=== PATIENT | female | born 1975 | race Caucasian/White ===

== ENCOUNTER 2016-08-11 15:58 | Emergency (ER) | payer BC ==
[~2016-08-11] VITALS: Ht 172.7 cm; Wt 123.5 kg
[~2016-08-11 15:58] MED LIST: CYCL5TAB PO; IBUP-1542 PO; PRED20TA PO
[2016-08-11 16:12] VITALS: Ht 172.7 cm; Wt 123.5 kg
[2016-08-11] MEDS ORDERED: NAPR-260 PO (19:31)
--- NOTE | 2016-08-11 19:38 | ERD ---
ER Documentation Chief Complaint Date/Time DATE: 08/11/16 TIME: 19:36 Chief Complaint Pt with B arm burning and numbness X 3 weeks HPI Patient complains of 3 weeks of pain in the patient complains of 3 weeks of pain mostly in the morning from the bilateral shoulders that radiates down to the fingers. It is a tingling and numbness and hot sensation. 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 She was told that she has carpal tunnel syndrome and they have been given her a wrist brace but actually makes her pain worse. She also cuts her right heel on a piece of glass a few days ago now the area is red. ROS All systems reviewed and are negative except as per history of present illness. Medications Home Meds Active Scripts Sulfamethoxazole-Trimethoprim* (Bactrim* DS) 800-160 Mg Tab, 1 TAB PO BID for 5 Days, TAB Prov:PRABHA GENTILE DO 08/11/16 Naproxen* (Naprosyn*) 500 Mg Tablet, 500 MG PO BID Y for PAIN AND/OR INFLAMMATION, #20 TAB Prov:PRABHA GENTILE DO 08/11/16 Cyclobenzaprine Hcl* (Cyclobenzaprine Hcl*) 5 Mg Tablet, 5 MG PO Q8H Y for PAIN , #15 TAB Prov:BONI WADDELL PA-C 07/21/16 Prednisone* (Prednisone*) 20 Mg Tab, 40 MG PO DAILY for 4 Days, TAB Prov:BONI WADDELL PA-C 07/21/16 Ibuprofen* (Motrin*) 600 Mg Tab, 600 MG PO Q6, #30 TAB Prov:BONI WADDELL PA-C 07/21/16 Allergies Allergies: Coded Allergies: No Known Allergy (Unverified , 08/11/16) PMhx/Soc Medical and Surgical Hx: pt denies Medical Hx, pt denies Surgical Hx History of Surgery: No Anesthesia Reaction: No Hx Neurological Disorder: No Hx Respiratory Disorders: No Hx Cardiac Disorders: No Hx Psychiatric Problems: No Hx Miscellaneous Medical Probl: No Hx Alcohol Use: No Hx Substance Use: No Hx Tobacco Use: No Smoking Status: Never smoker Physical Exam Vitals Vital Signs Date Time Temp Pulse Resp B/P Pulse Ox O2 Delivery O2 Flow Rate FiO2 08/11/16 16:12 98.3 85 16 152/75 99 Physical Exam Const: [] Head: Atraumatic Eyes: Normal Conjunctiva ENT: Normal External Ears, Nose and Mouth. Neck: Full range of motion..~ No meningismus. Resp: Clear to auscultation bilaterally Cardio: Regular rate and rhythm, no murmurs Abd: Soft, non tender, non distended. Normal bowel sounds Skin: No petechiae . Left heel has a 0.5 cm laceration that is healing with surrounding skin is mildly erythematous and slightly warm approximately 3" x 2" no fluctuance no discharge Back: No midline or flank tenderness Ext: No cyanosis, or edema. Shoulders full range of motion negative Neer's negative apprehension test and neurovascularly intact. Bilateral wrist positive Tinel's and positive Phalen's test. Wrists and hands are neurovascularly intact. Neur: Awake and alert Psych: Normal Mood and Affect Procedures/MDM The left heel skin has some erythema so this may be a superficial skin infection and will give her Bactrim. She has positive Tinel's and Phalen's bilaterally so she likely has carpal tunnel syndrome and she may have possibly nerve impingement from post shoulders as well. We will give her Naprosyn as she is already taking ibuprofen 600 mg and she was given prednisone last time she was here as well. She needs to see Workmen's Compensation from her work since this is likely work-related. I told her that the options for carpal tunnel is to rest her hand take frequent breaks if that does not work then consider seeing an orthopedist for possible cortisone injections or surgery. I doubt abscess or cellulitis or stroke or TIA or compression syndrome or bony fracture. Vital signs are stable she stable for discharge and outpatient follow -up. Departure Diagnosis: Primary Impression: Bilateral arm pain Additional Impressions: Skin infection Carpal tunnel syndrome on both sides Referrals: CHACORTA OCHOA ANDREW M MD BOGIKIAN,JOEL HUGGINS,MICHAEL DE ANDA,VANESSA CORTES,VIRGINIA MARTIN MD,MD BALTAZAR,HILDA Fisher MD [facility] YOU HAVE RECEIVED A MEDICAL SCREENING EXAM AND THE RESULTS INDICATE THAT YOU DO NOT HAVE A CONDITION THAT REQUIRES URGENT TREATMENT IN THE EMERGENCY DEPARTMENT. FURTHER EVALUATION AND TREATMENT OF YOUR CONDITION CAN WAIT UNTIL YOU ARE SEEN IN YOUR DOCTORS OFFICE WITHIN THE NEXT 1-2 DAYS. IT IS YOUR RESPONSIBILITY TO MAKE AN APPOINTMENT FOR FOLOW-UP CARE. IF YOU HAVE A PRIMARY DOCTOR --you should call your primary doctor and schedule an appointment IF YOU DO NOT HAVE A PRIMARY DOCTOR YOU CAN CALL OUR PHYSICIAN REFERRAL HOTLINE AT IF YOU CAN NOT AFFORD TO SEE A PHYSICIAN YOU CAN CHOSE FROM THE FOLLOWING [facility] [address] [facility] [address] [facility] [address] [facility] [address] [facility] [address] [facility]. [facility] [address] [facility]. [facility] YOU HAVE RECEIVED A MEDICAL SCREENING EXAM AND THE RESULTS INDICATE THAT YOU DO NOT HAVE A CONDITION THAT REQUIRES URGENT TREATMENT IN THE EMERGENCY DEPARTMENT. FURTHER EVALUATION AND TREATMENT OF YOUR CONDITION CAN WAIT UNTIL YOU ARE SEEN IN YOUR DOCTORS OFFICE WITHIN THE NEXT 1-2 DAYS. IT IS YOUR RESPONSIBILITY TO MAKE AN APPOINTMENT FOR FOLOW-UP CARE. IF YOU HAVE A PRIMARY DOCTOR --you should call your primary doctor and schedule and appointment IF YOU DO NOT HAVE A PRIMARY DOCTOR YOU CAN CALL OUR PHYSICIAN REFERRAL HOTLINE AT . IF YOU CAN NOT AFFORD TO SEE A PHYSICIAN YOU CAN CHOSE FROM THE FOLLOWING COUNT INCLUDES THE [facility] INSTITUTIONS: [facility] [address] [place] [address] [facility] [address] [place] [address] [facility] [address] [place] [address] [facility] 7 a.m.- 11 p.m. Every Day of the Week NO APPOINTMENT OR AUTHORIZATION NEEDED Additional Instructions: follow up with worlman compensation insurance. PRABHA GENTILE DO Aug 11, 2016 19:38
[2016-08-11] MEDS ORDERED: BACTDS PO (19:39)
== END 2016-08-11 19:45 | disposition home or self-care (01) ==
LOC: FTE 15:58
DX: M79.601 Pain in right arm (principal); L08.89 Other specified local infections of the skin and subcutaneous tissue; M79.602 Pain in left arm; G56.03 Carpal tunnel syndrome, bilateral upper limbs
CPT/HCPCS: 99283

== ENCOUNTER 2017-03-06 22:03 | Emergency (ER) | payer BC ==
[~2017-03-06] VITALS: Ht 170.2 cm; Wt 104.5 kg
[~2017-03-06 22:03] MED LIST changes: +BACTDS PO; +NAPR-260 PO
[2017-03-06 22:05] VITALS: Ht 170.2 cm; Wt 104.5 kg
[2017-03-06] MEDS ORDERED: IBUPROFEN 600 MG TAB PO ONE (22:30)
--- NOTE | 2017-03-06 22:36 | ERD ---
ER Documentation Chief Complaint Date/Time DATE: 03/06/17 TIME: 22:33 Chief Complaint s/p fall x1 week c/o right leg/knee pain HPI 41-year-old female presents here in emergency department for complaints of right knee pain after putting pressure on it a week ago. Patient was walking, landed on the right leg, put pressure on the right knee, twisted it. Patient started to have the pain afterwards throbbing pain, 6/10 scale, is worse upon movement accompanied with swelling. Patient denies any numbness or tingling. Patient denies any fever or chills. Patient did not take any medications to help with symptoms. Patient denies any deformity. ROS All systems reviewed and are negative except as per history of present illness. Medications Home Meds Active Scripts Sulfamethoxazole-Trimethoprim* (Bactrim* DS) 800-160 Mg Tab, 1 TAB PO BID for 5 Days, TAB Prov:PRABHA GENTILE DO 08/11/16 Naproxen* (Naprosyn*) 500 Mg Tablet, 500 MG PO BID Y for PAIN AND/OR INFLAMMATION, #20 TAB Prov:PRABHA GENTILE DO 08/11/16 Cyclobenzaprine Hcl* (Cyclobenzaprine Hcl*) 5 Mg Tablet, 5 MG PO Q8H Y for PAIN , #15 TAB Prov:BONI WADDELL PA-C 07/21/16 Prednisone* (Prednisone*) 20 Mg Tab, 40 MG PO DAILY for 4 Days, TAB Prov:BONI WADDELL PA-C 07/21/16 Ibuprofen* (Motrin*) 600 Mg Tab, 600 MG PO Q6, #30 TAB Prov:BONI WADDELL PA-C 07/21/16 Allergies Allergies: Coded Allergies: No Known Allergy (Unverified , 08/11/16) PMhx/Soc Medical and Surgical Hx: pt denies Medical Hx, pt denies Surgical Hx History of Surgery: No Anesthesia Reaction: No Hx Neurological Disorder: No Hx Respiratory Disorders: No Hx Cardiac Disorders: No Hx Psychiatric Problems: No Hx Miscellaneous Medical Probl: No Hx Alcohol Use: No Hx Substance Use: No Hx Tobacco Use: No FmHx Family History: No coronary disease, No diabetes, No other Physical Exam Vitals Vital Signs Date Time Temp Pulse Resp B/P Pulse Ox O2 Delivery O2 Flow Rate FiO2 03/06/17 22:05 98.1 75 18 125/70 98 Physical Exam GENERAL: The patient is well developed and appropriate for usual state of health, in no apparent distress. CHEST: Clear to auscultation bilaterally. There are no rales, wheezes or rhonchi. HEART: Regular rate and rhythm. No murmurs, clicks, rubs or gallops. No S3 or S4. ABDOMEN: Soft, nontender and nondistended. Good bowel sounds. No rebound or guarding. No gross peritonitis. No gross organomegaly or masses. No Grace sign or McBurney point tenderness. BACK: No midline or flank tenderness. EXTREMITIES: Noted swelling in the right knee, mild tenderness on palpation on lateral medial aspect of the right knee, some ecchymosis noted. Able to do full range of motion but with pain. Equal pulses bilaterally. Full range of motion of other joints of the body. Grossly neurovascularly intact. NEURO: Alert and oriented. Cranial nerves 2-12 intact. Motor strength in all 4 extremities with 5/5 strength. Sensation grossly intact. Normal speech and gait. SKIN: There is no apparent rash or petechia. The skin is warm and dry. HEMATOLOGIC AND LYMPHATIC: There is no evidence of excessive bruising or lymphedema. No gross cervical, axillary, or inguinal lymphadenopathy. Results 24 hrs Current Medications Medications (Trade) Dose Ordered Sig/Joyce Route PRN Reason Start Time Stop Time Status Last Admin Dose Admin Ibuprofen (Motrin) 600 mg ONCE ONCE PO 03/06/17 22:30 03/06/17 22:31 DC 03/06/17 22:56 Patient was given medication for pain here in emergency department, after treatment, patient verbalized feeling much better. Patient's pain is improved. PROCEDURE: Right knee. CLINICAL INDICATION: Pain. TECHNIQUE: Three views including AP, lateral and oblique views of the right knee were obtained. The images reviewed on a PACS workstation. COMPARISON: None. FINDINGS: There is no fracture, dislocation or bone destruction. There is no significant joint space narrowing or effusion. Bone mineralization is within normal limits. There is no radiopaque foreign body or abnormal calcification. IMPRESSION: No evidence of fracture. .Eben Myers MD, MD Date Time Electronically viewed and signed by .Eben Myers MD, MD on 03/07/2017 00:37 .T/ CC: JUSTIN CAMACHO NP After receiving patients xray report, a _knee immobilizer was applied on the patients _right knee_. After application of the splint, patient has intact sensation and circulation on distal area of the affected joint. Patient does not complain of numbness or tingling after application of the splint. Patient tolerated procedure well. Crutches was given to use afterwards. Procedures/MDM Medical Decision Making: Patient's pain is most likely consistent with a contusion or a sprain, possibly ligament injury, further evaluation with outpatient MRI was recommended with the patient. There is no suspicion for neurovascular compromise. Patient has intact sensation and circulation of the affected extremity. There is low suspicion for septic arthritis. Patient does not have any fever. Radiology exams of the affected area does not show any fracture or dislocation. Disposition: Home. Patient is given prescription for ibuprofen for mild to moderate pain [place] for severe pain. Patient was advised to elevate the affected area and apply ice on affected area. Patient was advised that if symptoms are worse, numbness, tingling, high fever, unable to move joint, worsening symptoms, to return to emergency department immediately. Otherwise, patient is advised to follow up with the primary care doctor in 5-7 days for reevaluation of symptoms. Patient was advised to see primary care doctor and request for an MRI outpatient. Departure Diagnosis: Primary Impression: Knee pain Laterality: right Chronicity: acute Qualified Code: M25.561 - Acute pain of right knee Condition: Stable Patient Instructions: Knee Pain, Uncertain Cause Additional Instructions: Patient is given prescription for ibuprofen for mild to moderate pain [place] for severe pain. Patient was advised to elevate the affected area and apply ice on affected area. Patient was advised that if symptoms are worse, numbness, tingling, high fever, unable to move joint, worsening symptoms, to return to emergency department immediately. Otherwise, patient is advised to follow up with the primary care doctor in 5-7 days for reevaluation of symptoms. Patient was advised to see primary care doctor and request for an MRI outpatient. JUSTIN CAMACHO NP Mar 06, 2017 22:36
--- NOTE | 2017-03-07 00:37 | RADRPT ---
PROCEDURE: Right knee. CLINICAL INDICATION: Pain. TECHNIQUE: Three views including AP, lateral and oblique views of the right knee were obtained. The images reviewed on a PACS workstation. COMPARISON: None. FINDINGS: There is no fracture, dislocation or bone destruction. There is no significant joint space narrowin g or effusion. Bone mineralization is within normal limits. There is no radiopaque foreign body or abnormal calcification. IMPRESSION: No evidence of fracture. .Eben Myers MD, Date Time Electronically viewed and signed by .Eben Myers MD, MD on 03/07/2017 00:37 .T/
[2017-03-07] MEDS ORDERED: HYDR-906 PO (00:45)
[2017-03-07] MEDS ORDERED: IBUP-1542 PO (00:45)
== END 2017-03-07 01:06 | disposition home or self-care (01) ==
LOC: FTE 22:03
DX: M25.561 Pain in right knee (principal)
CPT/HCPCS: 29505; 73562; Z7610

== ENCOUNTER 2017-03-27 16:35 | Emergency (ER) | payer BC ==
[~2017-03-27] VITALS: Ht 165.1 cm; Wt 123.0 kg
[~2017-03-27 16:35] MED LIST changes: +HYDR-906 PO
[2017-03-27 16:39] VITALS: Ht 165.1 cm; Wt 123.0 kg
--- NOTE | 2017-03-27 17:09 | ERD ---
ER Documentation Chief Complaint Date/Time DATE: 03/27/17 TIME: 16:58 Chief Complaint Complains of right knee and left leg pain x 2 weeks HPI 41-year-old female presents emergency department for right knee pain. Stated that she has injured this morning month ago while she was walking the beach, fell, landed on her right knee. On that same date, she went to the emergency department and have her knee imaging which resulted to be negative, on crutches and follow-up with her primary care physician, and was told to come back in the emergency department if she feels worse. Now she states that she has been walking without crutches and not sure if she has reinjured the same knee. She also added that she has lower back pain that is nontraumatic, pain radiates to her left lower extremity. Denies headache, loss of consciousness, dizziness, blurry vision, changes in vision, photophobia, facial pain, ear pain, throat pain, difficulty swallowing, neck pain, shoulder pain, chest pain, cough, hemoptysis, abdominal pain, back pain, loss of appetite, nausea, vomiting, hematochezia, diarrhea, constipation, urinary symptoms, , the possibility of being , bladder and bowel incontinences, extremity weakness, numbness or tingling sensation, difficulty walking, recent travel, recent exposure to illness, recent antibiotic use in the last 3 months, fever, chills. Allergy: No known drug allergies. PMH: Anxiety, carpal tunnel syndrome, asthma. Family medical history: Denies. A0. LMP: "2 months ago." Medications: [place]. Surgery: 4. Primary Social History: Denies. Denies smoking, use of alcohol, use of illegal drugs. ROS All systems reviewed and are negative except as per history of present illness. Medications Home Meds Active Scripts Tramadol HCl (Tramadol HCl) 50 Mg Tablet, 50 MG PO Q6, #20 TAB Prov:TASHIA BOJORQUEZ 03/27/17 Albuterol Sulfate* (Proair HFA*) 8.5 Gm Hfa.aer.ad, 2 PUFF INH Q4, #1 INHALER Prov:TASHIA BOJORQUEZ 03/27/17 Ibuprofen* (Motrin*) 800 Mg Tab, 800 MG PO Q8 Y for PAIN AND OR ELEVATED TEMP, # 30 TAB Prov:TASHIA BOJORQUEZ 03/27/17 Cyclobenzaprine Hcl* (Cyclobenzaprine Hcl*) 10 Mg Tablet, 10 MG PO Q12, #20 TAB Prov:TASHIA BOJORQUEZ F 03/27/17 Hydrocodone/Acetaminophen ([place] 5-325 Tablet) 1 Each Tablet, 1 TAB PO Q6H Y for SEVERE PAIN LEVEL 7-10, #20 TAB Prov:JUSTIN CAMACHO DATA LEAD 03/07/17 Ibuprofen* (Motrin*) 600 Mg Tab, 600 MG PO Q6H Y for PAIN AND OR ELEVATED TEMP, #30 TAB Prov:JUSTIN CAMACHO DATA LEAD 03/07/17 Sulfamethoxazole-Trimethoprim* (Bactrim* DS) 800-160 Mg Tab, 1 TAB PO BID for 5 Days, TAB Prov:KRUPA,PRABHA DO 08/11/16 Naproxen* (Naprosyn*) 500 Mg Tablet, 500 MG PO BID Y for PAIN AND/OR INFLAMMATION, #20 TAB Prov:PRABHA GENTILE DO 08/11/16 Cyclobenzaprine Hcl* (Cyclobenzaprine Hcl*) 5 Mg Tablet, 5 MG PO Q8H Y for PAIN , #15 TAB Prov:BONI WADDELL PA-C 07/21/16 Prednisone* (Prednisone*) 20 Mg Tab, 40 MG PO DAILY for 4 Days, TAB Prov:BONI WADDELL PA-C 07/21/16 Ibuprofen* (Motrin*) 600 Mg Tab, 600 MG PO Q6, #30 TAB Prov:BONI WADDELL PA-C 07/21/16 Allergies Allergies: Coded Allergies: No Known Allergy (Unverified , 03/27/17) PMhx/Soc History of Surgery: Yes (c-sec, tone) Anesthesia Reaction: No Hx Neurological Disorder: No Hx Respiratory Disorders: No Hx Cardiac Disorders: No Hx Psychiatric Problems: No Hx Miscellaneous Medical Probl: Yes (carpal tunnel) Hx Alcohol Use: No Hx Substance Use: No Hx Tobacco Use: No Physical Exam Vitals Vital Signs Date Time Temp Pulse Resp B/P Pulse Ox O2 Delivery O2 Flow Rate FiO2 03/27/17 16:39 98.5 86 20 132/64 100 Physical Exam CONSTITUTIONAL: Well-appearing; well-nourished; in no apparent distress. HEAD: Normocephalic; atraumatic. EYES: Conjunctiva clear, sclera non-icteric, EOM intact. PERRL Ears: Hearing intact. EACs clear, TMs non-bulging, non-inflamed, translucent & mobile, ossicles normal appearance, No obstructions, no erythema, no discharges Nose: No obstructions. No polyps. No external lesions. Mucosa non-inflamed. No external lesions, septum and turbinates normal. No rhinorrhea. No discharges. Frontal sinus is non-tender to palpation. Maxillary sinus is non-tender to palpation. MOUTH: Moist mucous membranes, no lesion, no obstructions, no vesicles, no thrush, patent airway Throat: Uvula in midline. Right tonsil is +1 with no erythema, no exudate. Left tonsil is +1 with no erythema, no exudate. Tolerating secretions well. Good gag reflex. Patent airway. Neck: Supple, without lesions, bruits, or adenopathy. No mass. Thyroid non- enlarged and non-tender to palpation. CHEST: Symmetrical chest. Respirations even and not labored. No retractions noted. CARDIOVASCULAR: Normal S1, S2. RRR. No murmurs, gallops. RESPIRATORY: Normal chest excursion with respiration; breath sounds clear and equal bilaterally; no wheezes, rhonchi, or rales. Breathing even and unlabored. Speaking in clear, full, and complete sentences w/ ease. ABDOMEN: Normal bowel sounds normal. Soft, round, non-distended, non-guarding, no tenderness, no rebound, no organomegaly, no masses, no pulsating abdominal mass. No hernia. No peritoneal signs. : No CVA tenderness. BACK: Symmetrical shoulder. Spine is midline without deformity, tenderness. No evidence of trauma or deformity. PELVIS: Stable pelvis. No evidence of trauma or deformity. MUSCULOSKELETAL: Normal gait and station. No misalignment, asymmetry, crepitation, defects, tenderness, masses, effusions, decreased range of motion, instability, atrophy or abnormal strength or tone in the head, neck, spine, ribs , pelvis or extremities. No calf tenderness. Stable and unremarkable bilateral hips. Left straight leg test is positive. Left knee is unremarkable. Left ankle/foot are unremarkable with no neurovascular deficits. Right knee has no obvious deformity but tenderness to palpation to anterior and posterior part with good and full range of motion. Negative Adelfo test. Negative drawer test. Right ankle/foot are unremarkable with no neurovascular deficits. Negative Homans sign bilaterally. NEUROVASCULAR: Distal pulses are present. Pedal pulse are present, equal, and normal. Capillary refills are < 2 seconds. NEUROLOGIC: Alert and oriented x4. Speaks full and clear sentences.Sensation to pain, touch, and proprioception normal. Grossly unremarkable. No neurologic deficits. PSYCHOLOGICAL: The patients mood and manner are appropriate. No hallucinations , delusions. Not SI. Not HI. Has the capacity to decide for self SKIN: Normal for age and ethnicity; warm; dry; good turgor; no apparent lesions or exudates. No rashes, hives, discoloration. Intact. Results 24 hrs Current Medications Medications (Trade) Dose Ordered Sig/Joyce Route PRN Reason Start Time Stop Time Status Last Admin Dose Admin Acetaminophen/ Hydrocodone Bitart ([place] (10/325)) 1 tab ONCE ONCE PO 03/27/17 18:00 03/27/17 18:01 DC 03/27/17 17:55 Procedures/MDM Examination: Please see physical examination. Disease process, medical treatment was explained to the patient and family member. They verbalized understanding and agreed with the diagnostic tests, medical treatment, and follow-up care. Radiology: X-ray of the right knee Impression: Increasing size of joint effusion. No fracture seen however the effusion could reflect ligamentous or meniscal injury. Treatment: Knee immobilizer. Crutches. Re-evaluation: Denies headache, dizziness, blurry vision, neck pain, shoulder pain, chest pain, back pain, abdominal pain, nausea, vomiting. No episode of emesis in the emergency department. Alert and oriented 4. Speaks full and clear sentences. Respirations even and unlabored. Lung sounds clear to auscultation. Ambulatory with steady gait. No neurovascular deficits. No neurological deficits. No neurovascular deficits prior to and after the application of knee immobilizer. Consultation: None. Differential diagnosis: Fracture versus dislocation versus displacement versus contusion versus sprain versus sciatica Medical decision makin-year-old female presents emergency department for right knee pain. Stated that she has injured this morning month ago while she was walking the beach, fell, landed on her right knee. On that same date, she went to the emergency department and have her knee imaging which resulted to be negative, on crutches and follow-up with her primary care physician, and was told to come back in the emergency department if she feels worse. Now she states that she has been walking without crutches and not sure if she has reinjured the same knee. She also added that she has lower back pain that is nontraumatic, pain radiates to her left lower extremity. Patient's complaint, patient's history about her complaint, my physical findings, diagnostic test results, my reevaluation after treatment are consistent my final diagnosis of low back strain, sciatica, sneeze sprain, knee contusion. Patient was also asking for an inhaler for her chronic asthma stating that she ran out of this inhaler. Medications prescribed are the following: Flexeril. Motrin. Tramadol. Pro- air. Patient and family member are made aware of the side effects and adverse reactions of the medications prescribed. Instructed on when to seek emergent and medical attention in case allergic/anaphylactic reactions or severe side effects and or adverse reactions to medications. Patient and family member verbalized understanding. Patient instructed Instructed to follow-up with his PCP in 24-48 hours. PCP to refer patient to orthopedic doctor in the next 24-48 hours. Instructed to Call 911 for chest pain, shortness of breath. Advised to come back here in ED as soon as possible for severity of symptoms which includes but not limited to: any new symptoms; shortness of breath/difficulty of breathing; cardiovascular changes; severe gastrointestinal symptoms; signs and symptoms of bleeding and or infection; signs of compartment syndrome/neurovascular changes; neurological changes/deficits. Patient and family member verbalized understanding. Upon discharge, patient is alert and oriented x 4, speaks full and clear sentences, denies pain, has no neurological deficits, has no neurovascular deficits, difficulty of breathing. Breathing even and unlabored. Lung sounds are clear to auscultation. Not in distress. Appears comfortable. Ambulatory with steady gait. Appears satisfied with care provided here in ED. Departure Diagnosis: Primary Impression: Low back strain Additional Impressions: Sciatica Knee sprain Knee contusion Meniscal injury Condition: Stable Additional Instructions: Instructed to follow-up with his PCP in 24-48 hours. PCP to refer patient to orthopedic doctor in the next 24-48 hours. Instructed to Call 911 for chest pain, shortness of breath. Advised to come back here in ED as soon as possible for severity of symptoms which includes but not limited to: any new symptoms; shortness of breath/difficulty of breathing; cardiovascular changes; severe gastrointestinal symptoms; signs and symptoms of bleeding and or infection; signs of compartment syndrome/neurovascular changes; neurological changes/deficits. Patient and family member verbalized understanding. TASHIA BOJORQUEZ Mar 27, 2017 17:09
[2017-03-27] MEDS ORDERED: IBUP800T25 PO (17:42)
[2017-03-27] MEDS ORDERED: CYCL-319 PO (17:42)
[2017-03-27] MEDS ORDERED: ALBU8.5H3 INH (17:43)
[2017-03-27] MEDS ORDERED: HYDROCODONE/APAP (10/325) TAB PO ONE (18:00)
--- NOTE | 2017-03-27 18:24 | RADRPT ---
PROCEDURE: XR RIGHT KNEE. CLINICAL INDICATION: Right knee recurrent injury. Pain. TECHNIQUE: Three views of the right knee are available for review. COMPARISON: 03/06/2017. FINDINGS: There is a [id number] joint effusion present and there has been an increase in size. No frac ture is identified. The findings may reflect a ligamentous injury or meniscal tear. There is mild arthrosis of the patellofemoral joint. No evidence for bone destructive or erosive change. IMPRESSION: 1. Increase in size of joint effusion. 2. No fractures seen however the effusion could reflect ligamentous or meniscal injury. RPTAT: XX .Jonas Taylor MD, MD Date Time Electronically viewed and signed by .Jonas Taylor MD, on 03/27/2017 18:23 .T/
[2017-03-27] MEDS ORDERED: TRAM50TA2 PO (18:35)
[2017-03-27 19:00] VITALS: BP 135/68; PULSE 76; RESP 18
== END 2017-03-27 19:01 | disposition home or self-care (01) ==
LOC: FTE 16:35
DX: S39.012A Strain of muscle, fascia and tendon of lower back, initial encounter (principal); S80.01XA Contusion of right knee, initial encounter; S83.91XA Sprain of unspecified site of right knee, initial encounter; J45.909 Unspecified asthma, uncomplicated; W18.39XA Other fall on same level, initial encounter; Y92.9 Unspecified place or not applicable
CPT/HCPCS: 73562; 99284; Z7610

== ENCOUNTER 2017-04-14 11:48 | Emergency (ER) | payer BC ==
[~2017-04-14] VITALS: Ht 170.2 cm; Wt 123.0 kg
[~2017-04-14 11:48] MED LIST changes: +ALBU8.5H3 INH; +CYCL-319 PO; +IBUP800T25 PO; +TRAM50TA2 PO
[2017-04-14 11:52] VITALS: Ht 170.2 cm; Wt 123.0 kg
[2017-04-14] MEDS ORDERED: KETOROLAC 30 MG INJ IM STA (13:21)
[2017-04-14] MEDS ORDERED: ONDANSETRON (ODT) 4 MG TAB ODT STA (13:22)
[2017-04-14] MEDS ORDERED: KETOROLAC 30 MG INJ IV STA (13:32)
[2017-04-14] MEDS ORDERED: TRAM50TA2 PO (14:40)
[2017-04-14] MEDS ORDERED: ONDA4TAB14 PO (14:40)
--- NOTE | 2017-04-14 14:48 | ERD ---
ER Documentation Chief Complaint Date/Time DATE: 04/14/17 TIME: 14:45 Chief Complaint SCIATICA PAIN,RIGHT KNEE PAIN FROM A FALL INCIDENT 2 MOS AGO HPI 41-year-old female with history of sciatica, chronic right knee pain, bilateral carpal tunnel syndrome presents with multiple body complaints and pains. She comes here in pain because she was evicted from her home, and she states that she lost her medications. Patient reports she usually takes tramadol, ibuprofen for pain. She has a appointment to see a primary doctor on April 22 which is a week from now. Patient reports that she has had pain rated severe , and reports associated nausea vomiting that started this morning. She denies abdominal pain. She denies UTI symptoms. Patient denies saddle anesthesia loss of bowel bladder function. She denies fevers or chills or trauma. ROS All systems reviewed and are negative except as per history of present illness. Medications Home Meds Active Scripts Tramadol HCl (Tramadol HCl) 50 Mg Tablet, 50 MG PO Q4 Y for PAIN, #15 TAB Prov:BONI WADDELL PA-C 04/14/17 Ondansetron (Ondansetron Odt) 4 Mg Tab.rapdis, 4 MG PO Q6H Y for NAUSEA AND/OR VOMITING, #10 TAB Prov:BONI WADDELL PA-C 04/14/17 Tramadol HCl (Tramadol HCl) 50 Mg Tablet, 50 MG PO Q6, #20 TAB Prov:TASHIA BOJORQUEZ 03/27/17 Albuterol Sulfate* (Proair HFA*) 8.5 Gm Hfa.aer.ad, 2 PUFF INH Q4, #1 INHALER Prov:TASHIA BOJORQUEZ 03/27/17 Ibuprofen* (Motrin*) 800 Mg Tab, 800 MG PO Q8 Y for PAIN AND OR ELEVATED TEMP, # 30 TAB Prov:TASHIA BOJORQUEZ 03/27/17 Cyclobenzaprine Hcl* (Cyclobenzaprine Hcl*) 10 Mg Tablet, 10 MG PO Q12, #20 TAB Prov:TASHIA BOJORQUEZ 03/27/17 Hydrocodone/Acetaminophen ([place] 5-325 Tablet) 1 Each Tablet, 1 TAB PO Q6H Y for SEVERE PAIN LEVEL 7-10, #20 TAB Prov:JUSTIN CAMACHO NP 03/07/17 Ibuprofen* (Motrin*) 600 Mg Tab, 600 MG PO Q6H Y for PAIN AND OR ELEVATED TEMP, #30 TAB Prov:JUSTIN CAMACHO NP 03/07/17 Sulfamethoxazole-Trimethoprim* (Bactrim* DS) 800-160 Mg Tab, 1 TAB PO BID for 5 Days, TAB Prov:PRABHA GENTILE DO 08/11/16 Naproxen* (Naprosyn*) 500 Mg Tablet, 500 MG PO BID Y for PAIN AND/OR INFLAMMATION, #20 TAB Prov:PRABHA GENTILE DO 08/11/16 Cyclobenzaprine Hcl* (Cyclobenzaprine Hcl*) 5 Mg Tablet, 5 MG PO Q8H Y for PAIN , #15 TAB Prov:BONI WADDELL PA-C 07/21/16 Prednisone* (Prednisone*) 20 Mg Tab, 40 MG PO DAILY for 4 Days, TAB Prov:BONI WADDELL PA-C 07/21/16 Ibuprofen* (Motrin*) 600 Mg Tab, 600 MG PO Q6, #30 TAB Prov:BONI WADDELL PA-C 07/21/16 Allergies Allergies: Coded Allergies: No Known Allergy (Unverified , 03/27/17) PMhx/Soc History of Surgery: Yes (c-sec, tone) Anesthesia Reaction: No Hx Neurological Disorder: No Hx Respiratory Disorders: No Hx Cardiac Disorders: No Hx Psychiatric Problems: No Hx Miscellaneous Medical Probl: Yes (carpal tunnel) Hx Alcohol Use: No Hx Substance Use: No Hx Tobacco Use: No Smoking Status: Never smoker Physical Exam Vitals Vital Signs Date Time Temp Pulse Resp B/P Pulse Ox O2 Delivery O2 Flow Rate FiO2 04/14/17 15:05 72 16 121/56 98 Room Air 04/14/17 11:52 97.9 82 18 188/89 100 Physical Exam General: Well-developed, well-nourished. The patient appears in no acute distress. HEENT: Head is normocephalic, atraumatic. No scleral icterus. Neck: Supple. Nontender. Lungs: Clear to auscultation. Normal air movement. Heart: Regular rate and rhythm. S1 and S2 are normal. No murmurs, gallops, or rubs. Abdomen: Soft, nontender, nondistended. Bowel sounds are normoactive. Back: No midline tenderness, no step-offs. Strength lower extremities 5 out of 5 bilaterally. Extremities: No clubbing or cyanosis. Normal pulses. Moving extremities x 4. No weakness. Neurologic: Alert and oriented 3. No focal deficits. Skin: Normal turgor. No rash or lesions. Results 24 hrs Laboratory Tests Test 04/14/17 13:38 Beta HCG, Quantitative < 2.4mIU/ml Current Medications Medications (Trade) Dose Ordered Sig/Joyce Route PRN Reason Start Time Stop Time Status Last Admin Dose Admin Ketorolac Tromethamine (Toradol) 30 mg ONCE STAT IM 04/14/17 13:21 04/14/17 13:33 DC Ondansetron HCl (Zofran Odt) 4 mg ONCE STAT ODT 04/14/17 13:22 04/14/17 13:23 DC 04/14/17 13:22 Ketorolac Tromethamine (Toradol) 30 mg ONCE STAT IV 04/14/17 13:32 04/14/17 13:33 DC 04/14/17 13:32 Procedures/MDM ED course: We will try to obtain urine from her, patient states that she was not able to urinate she reports vomiting, IV line was established, blood was drawn and her beta quantitative is negative so she was given Toradol 30 mg IV. She received Zofran 4 mg ODT. Reassessment the patient shows that her pain is much improved, blood pressure was rechecked and has normalized. MDM: 41-year-old female comes in with multiple complaints with body pain, back pain, bilateral carpal tunnel pain as well as knee pain.Patient presents with acute onset of pain, she was given Toradol and Zofran which alleviated her symptoms. I do not see any signs of acute coronary syndrome, dissection, aneurysm, pulmonary embolus. Back pain appears to be chronic. I advised that we do not refill narcotic pain medication are lost or stolen emergency room. Given a short course of tramadol, as well as Zofran for symptoms. Further pain management she is to follow-up with her primary doctor. Departure Diagnosis: Primary Impression: Sciatica Additional Impression: Knee sprain Condition: Good Patient Instructions: Back Pain W/ Sciatica Additional Instructions: Call your primary care doctor TOMORROW for an appointment during the next 1-2 days.See the doctor sooner or return here if your condition worsens before your appointment time. BONI WADDELL PA-C Apr 14, 2017 14:48
[2017-04-14 15:05] VITALS: BP 121/56; PULSE 72; RESP 16
== END 2017-04-14 15:35 | disposition home or self-care (01) ==
LOC: FTE 11:48
DX: S83.91XA Sprain of unspecified site of right knee, initial encounter (principal); M54.30 Sciatica, unspecified side; R11.10 Vomiting, unspecified; W19.XXXA Unspecified fall, initial encounter; Y92.9 Unspecified place or not applicable
CPT/HCPCS: 84702; 96374; 96375; 99284; J1885; Z7610

== ENCOUNTER 2017-05-23 15:33 | Emergency (ER) | payer BC ==
[~2017-05-23] VITALS: Ht 157.5 cm; Wt 130.0 kg
[~2017-05-23 15:33] MED LIST changes: +ONDA4TAB14 PO
[2017-05-23 15:39] VITALS: Ht 157.5 cm; Wt 130.0 kg
[2017-05-23] MEDS ORDERED: LIDOCAINE 1% (MDV) 20 ML INJ SC ONE (18:00)
--- NOTE | 2017-05-23 18:48 | ERD ---
ER Documentation Chief Complaint Date/Time DATE: 05/23/17 TIME: 18:46 Chief Complaint Laceration HPI 41-year-old female presents emergency department status post slip and fall in the shower, complaining of a laceration to her right fifth digit. She states while she was fine there is a piece of metal sticking out and it caused a laceration to the lateral aspect of her pinky finger. No difficulty with movement of the finger, she denies paresthesias. ROS All systems reviewed and are negative except as per history of present illness. Medications Home Meds Active Scripts Tramadol HCl (Tramadol HCl) 50 Mg Tablet, 50 MG PO Q4 Y for PAIN, #15 TAB Prov:BONI WADDELL PA-C 04/14/17 Ondansetron (Ondansetron Odt) 4 Mg Tab.rapdis, 4 MG PO Q6H Y for NAUSEA AND/OR VOMITING, #10 TAB Prov:BONI WADDELL PA-C 04/14/17 Tramadol HCl (Tramadol HCl) 50 Mg Tablet, 50 MG PO Q6, #20 TAB Prov:TASHIA BOJORQUEZ 03/27/17 Albuterol Sulfate* (Proair HFA*) 8.5 Gm Hfa.aer.ad, 2 PUFF INH Q4, #1 INHALER Prov:TASHIA BOJORQUEZ 03/27/17 Ibuprofen* (Motrin*) 800 Mg Tab, 800 MG PO Q8 Y for PAIN AND OR ELEVATED TEMP, # 30 TAB Prov:TASHIA BOJORQUEZ 03/27/17 Cyclobenzaprine Hcl* (Cyclobenzaprine Hcl*) 10 Mg Tablet, 10 MG PO Q12, #20 TAB Prov:TASHIA BOJORQUEZ 03/27/17 Hydrocodone/Acetaminophen ([place] 5-325 Tablet) 1 Each Tablet, 1 TAB PO Q6H Y for SEVERE PAIN LEVEL 7-10, #20 TAB Prov:JUSTIN CAMACHO NP 03/07/17 Ibuprofen* (Motrin*) 600 Mg Tab, 600 MG PO Q6H Y for PAIN AND OR ELEVATED TEMP, #30 TAB Prov:JUSTIN CAMACHO NP 03/07/17 Sulfamethoxazole-Trimethoprim* (Bactrim* DS) 800-160 Mg Tab, 1 TAB PO BID for 5 Days, TAB Prov:PRABHA GENTILE DO 08/11/16 Naproxen* (Naprosyn*) 500 Mg Tablet, 500 MG PO BID Y for PAIN AND/OR INFLAMMATION, #20 TAB Prov:PRABHA GENTILE DO 08/11/16 Cyclobenzaprine Hcl* (Cyclobenzaprine Hcl*) 5 Mg Tablet, 5 MG PO Q8H Y for PAIN , #15 TAB Prov:BONI WADDELL PA-C 07/21/16 Prednisone* (Prednisone*) 20 Mg Tab, 40 MG PO DAILY for 4 Days, TAB Prov:BONI WADDELL PA-C 07/21/16 Ibuprofen* (Motrin*) 600 Mg Tab, 600 MG PO Q6, #30 TAB Prov:BONI WADDELL PA-C 07/21/16 Allergies Allergies: Coded Allergies: No Known Allergy (Unverified , 05/23/17) PMhx/Soc History of Surgery: Yes (c-sec, tone) Anesthesia Reaction: No Hx Neurological Disorder: No Hx Respiratory Disorders: No Hx Cardiac Disorders: No Hx Psychiatric Problems: No Hx Miscellaneous Medical Probl: Yes (carpal tunnel) Hx Alcohol Use: No Hx Substance Use: No Hx Tobacco Use: No Smoking Status: Never smoker Physical Exam Vitals Vital Signs Date Time Temp Pulse Resp B/P Pulse Ox O2 Delivery O2 Flow Rate FiO2 05/23/17 15:39 98.1 99 18 129/63 99 Physical Exam = General: Well-developed, well-nourished. The patient appears in no acute distress. HEENT: Head is normocephalic, atraumatic. No scleral icterus. Neck: Supple. Nontender. Lungs: Clear to auscultation. Normal air movement. Heart: Regular rate and rhythm. S1 and S2 are normal. No murmurs, gallops, or rubs. Abdomen: Nondistended. Extremities: No clubbing or cyanosis. Moving extremities x 4. No weakness. Neurologic: Alert and oriented 3. No focal deficits. Normal speech and gait. Skin: 1 cm V-shaped laceration at the lateral aspect of the right fifth digit. There is no active bleeding, it is superficial, and is avulsion of the skin. For torsion at DIP, PIP and MCP joint. Results 24 hrs Current Medications Medications (Trade) Dose Ordered Sig/Joyce Route PRN Reason Start Time Stop Time Status Last Admin Dose Admin Lidocaine (Xylocaine 1% (Mdv) 20 ml) 20 ml ONCE ONCE SC 05/23/17 18:00 05/23/17 18:01 DC Procedures/MDM Laceration Repair by me: She was verbally consented Anesthesia: 1% lidocaine locally Location: Right fifth digit Tendon/Joint/Nerves: No injury Foreign body: None detected after copious irrigation and exploration Technique: Simple Interrupted Sutures 5 using 5-0 Ethilon Complexity: No subcutaneous sutures/mucosal repair/ edge excision Post Closure Length: 2cm Patient's bleeding was easily controlled in the department and there is no indication of anemia. No evidence of compartment syndrome, neurologic injury, vascular injury, open joint, tendon laceration, or foreign body. Patient is appropriate for outpatient follow up. 48 hour wound check. Scar minimization instructions given. Departure Diagnosis: Primary Impression: Laceration Condition: Good Patient Instructions: Laceration, All Additional Instructions: Follow up in 2 days in your clinic for wound check. Follow up with your physician to remove the stitches: 7-10 days. BONI WADDELL PA-C May 23, 2017 18:48
== END 2017-05-23 18:35 | disposition home or self-care (01) ==
LOC: FTE 15:33
DX: S61.216A Laceration without foreign body of right little finger without damage to nail, initial encounter (principal); W18.2XXA Fall in (into) shower or empty bathtub, initial encounter; Y92.9 Unspecified place or not applicable
CPT/HCPCS: 12001; 99282; Z7610

== ENCOUNTER 2017-05-29 20:54 | Emergency (ER) | payer BC, OTHER ==
[~2017-05-29] VITALS: Ht 170.2 cm; Wt 135.0 kg
[2017-05-29 21:01] VITALS: Ht 170.2 cm; Wt 135.0 kg
== END 2017-05-29 21:04 | disposition left against medical advice (07) ==
LOC: FTE 20:54
DX: Z53.21 Procedure and treatment not carried out due to patient leaving prior to being seen by health care provider (principal)

== ENCOUNTER 2017-05-30 09:55 | Emergency (ER) | payer BC ==
[~2017-05-30] VITALS: Ht 170.2 cm; Wt 132.0 kg
[2017-05-30 09:59] VITALS: Ht 170.2 cm; Wt 132.0 kg
--- NOTE | 2017-05-30 11:06 | ERD ---
ER Documentation Chief Complaint Chief Complaint suture removal right 5th finger HPI 41-year-old female presented ED for suture removal of her right fifth finger. She has sustained laceration 7 days ago, and had closure done here. He reports no problems, able to flex and extend her affected finger. Denies fever or chills. Denies increased pain, swelling, or exudate. ROS All systems reviewed and are negative except as per history of present illness. Medications Home Meds Active Scripts Tramadol HCl (Tramadol HCl) 50 Mg Tablet, 50 MG PO Q4 Y for PAIN, #15 TAB Prov:BONI WADDELL PA-C 04/14/17 Ondansetron (Ondansetron Odt) 4 Mg Tab.rapdis, 4 MG PO Q6H Y for NAUSEA AND/OR VOMITING, #10 TAB Prov:BONI WADDELL PA-C 04/14/17 Tramadol HCl (Tramadol HCl) 50 Mg Tablet, 50 MG PO Q6, #20 TAB Prov:TASHIA BOJORQUEZ 03/27/17 Albuterol Sulfate* (Proair HFA*) 8.5 Gm Hfa.aer.ad, 2 PUFF INH Q4, #1 INHALER Prov:TASHIA BOJORQUEZ 03/27/17 Ibuprofen* (Motrin*) 800 Mg Tab, 800 MG PO Q8 Y for PAIN AND OR ELEVATED TEMP, # 30 TAB Prov:TASHIA BOJORQUEZ 03/27/17 Cyclobenzaprine Hcl* (Cyclobenzaprine Hcl*) 10 Mg Tablet, 10 MG PO Q12, #20 TAB Prov:TASHIA BOJORQUEZ 03/27/17 Hydrocodone/Acetaminophen ([place] 5-325 Tablet) 1 Each Tablet, 1 TAB PO Q6H Y for SEVERE PAIN LEVEL 7-10, #20 TAB Prov:JUSTIN CAMACHO NP 03/07/17 Ibuprofen* (Motrin*) 600 Mg Tab, 600 MG PO Q6H Y for PAIN AND OR ELEVATED TEMP, #30 TAB Prov:JUSTIN CAMACHO NP 03/07/17 Sulfamethoxazole-Trimethoprim* (Bactrim* DS) 800-160 Mg Tab, 1 TAB PO BID for 5 Days, TAB Prov:PRABHA GENTILE DO 08/11/16 Naproxen* (Naprosyn*) 500 Mg Tablet, 500 MG PO BID Y for PAIN AND/OR INFLAMMATION, #20 TAB Prov:PRABHA GENTILE DO 08/11/16 Cyclobenzaprine Hcl* (Cyclobenzaprine Hcl*) 5 Mg Tablet, 5 MG PO Q8H Y for PAIN , #15 TAB Prov:BONI WADDELL PA-C 07/21/16 Prednisone* (Prednisone*) 20 Mg Tab, 40 MG PO DAILY for 4 Days, TAB Prov:OBNI WADDELL PA-C 07/21/16 Ibuprofen* (Motrin*) 600 Mg Tab, 600 MG PO Q6, #30 TAB Prov:BONI WADDELL PA-C 07/21/16 Allergies Allergies: Coded Allergies: No Known Allergy (Unverified , 05/29/17) PMhx/Soc History of Surgery: Yes (c-sec, tone) Anesthesia Reaction: No Hx Neurological Disorder: No Hx Respiratory Disorders: No Hx Cardiac Disorders: No Hx Psychiatric Problems: No Hx Miscellaneous Medical Probl: Yes (carpal tunnel) Hx Alcohol Use: No Hx Substance Use: No Hx Tobacco Use: No Physical Exam Vitals Vital Signs Date Time Temp Pulse Resp B/P Pulse Ox O2 Delivery O2 Flow Rate FiO2 05/30/17 09:59 98.1 90 18 133/65 100 Physical Exam General: Well-developed, well-nourished, conscious and coherent, in no distress Skin: Warm and dry without rash, good texture and turgor Head: Normocephalic without evidence of trauma Eyes: Sclera and conjunctivae normal; pupils equal, round, and reactive to light; extraocular movements are intact Chest: Normal AP diameter. Good expansion without retractions. Nontender. Lungs are clear to auscultate bilaterally with good tidal volume Heart: Regular rate and rhythm. No murmur, rub, or gallops heard Abdomen: Soft and nontender without masses, guarding, or rebound. Bowel sounds are active. No hepatosplenomegaly Extremities: Full range of motion. Good strength bilaterally. No clubbing, cyanosis, or edema. Peripheral pulses are intact. Sensation intact. No periorbital erythema, swelling, or exudate at the suture site Neuro: Alert and oriented 4, GCS 15. Cranial nerves grossly intact. Motor and sensory exams nonfocal. Moves all extremities. Speech clear. Gait normal Procedures/MDM Suture Removal by me: Sutures removed with tweezers and scissors without incident. Wound shows no evidence of infection, foreign body, neurologic injury, vascular injury, open joint or tendon laceration. No wound dehiscence. Patient to follow up PRN. Departure Diagnosis: Primary Impression: Encounter for removal of sutures Condition: Stable Patient Instructions: Suture Removal, No Complication Referrals: [facility] (PCP) Additional Instructions: Call your primary care doctor TOMORROW for an appointment during the next 1 WEEK.Tell the financial secretary that you were referred from this facility.See the doctor sooner or return here if your condition worsens before your appointment time. NYLA DAVID NP May 30, 2017 11:06
== END 2017-05-30 11:26 | disposition left against medical advice (07) ==
LOC: FTE 09:55
DX: Z48.02 Encounter for removal of sutures (principal)
CPT/HCPCS: 99281

== ENCOUNTER 2017-07-21 08:14 | Emergency (ER) | payer BC ==
[~2017-07-21] VITALS: Ht 157.5 cm; Wt 133.9 kg
[2017-07-21 08:17] VITALS: Ht 157.5 cm; Wt 133.9 kg
[2017-07-21] MEDS ORDERED: CYCL-319 PO (08:40)
[2017-07-21] MEDS ORDERED: IBUP800T25 PO (08:40)
--- NOTE | 2017-07-21 08:48 | ERD ---
ER Documentation Chief Complaint Chief Complaint " sciatic nerve pain" x 2 days HPI 42-year-old female with history of sciatica pain on her right presents the ED today complaining of "sciatic pain" on her left. Patient stated that she had pain in her left buttock that radiates down to her left leg for the last 2 days. The pain is worse with movement, she cannot find a comfortable position. She is also complaining of the toes in her left foot feeling numb. Denies falls or injuries. Denies saddle paresthesia. Denies bowel or bladder dysfunction. ROS All systems reviewed and are negative except as per history of present illness. Medications Home Meds Active Scripts Cyclobenzaprine Hcl* (Cyclobenzaprine Hcl*) 10 Mg Tablet, 10 MG PO TID, #15 TAB Prov:NYLA DAVID PROFESSOR [employer]ANCE 07/21/17 Ibuprofen* (Motrin*) 800 Mg Tab, 800 MG PO Q6H Y for PAIN AND OR ELEVATED TEMP, #30 TAB Prov:NYLA DAVID PROFESS[employer] 07/21/17 Tramadol HCl (Tramadol HCl) 50 Mg Tablet, 50 MG PO Q4 Y for PAIN, #15 TAB Prov:BONI WADDELL PA-C 04/14/17 Ondansetron (Ondansetron Odt) 4 Mg Tab.rapdis, 4 MG PO Q6H Y for NAUSEA AND/OR VOMITING, #10 TAB Prov:BONI WADDELL PA-C 04/14/17 Tramadol HCl (Tramadol HCl) 50 Mg Tablet, 50 MG PO Q6, #20 TAB Prov:TASHIA BOJORQUEZ 03/27/17 Albuterol Sulfate* (Proair HFA*) 8.5 Gm Hfa.aer.ad, 2 PUFF INH Q4, #1 INHALER Prov:TASHIA BOJORQUEZ 03/27/17 Ibuprofen* (Motrin*) 800 Mg Tab, 800 MG PO Q8 Y for PAIN AND OR ELEVATED TEMP, # 30 TAB Prov:TASHIA BOJORQUEZ 03/27/17 Cyclobenzaprine Hcl* (Cyclobenzaprine Hcl*) 10 Mg Tablet, 10 MG PO Q12, #20 TAB Prov:TASHIA BOJORQUEZ 03/27/17 Hydrocodone/Acetaminophen ([place] 5-325 Tablet) 1 Each Tablet, 1 TAB PO Q6H Y for SEVERE PAIN LEVEL 7-10, #20 TAB Prov:CHIKISCEASARJUSTIN ROMAN PROFESSOR [employer] 03/07/17 Ibuprofen* (Motrin*) 600 Mg Tab, 600 MG PO Q6H Y for PAIN AND OR ELEVATED TEMP, #30 TAB Prov:CHIKISCEASARJUSTIN ROMAN. PROFESSOR [employer] FINANCE 03/07/17 Sulfamethoxazole-Trimethoprim* (Bactrim* DS) 800-160 Mg Tab, 1 TAB PO BID for 5 Days, TAB Prov:KRUPA,PRABHA DO 08/11/16 Naproxen* (Naprosyn*) 500 Mg Tablet, 500 MG PO BID Y for PAIN AND/OR INFLAMMATION, #20 TAB Prov:KRUPANEELIMAPRABHA DO 08/11/16 Cyclobenzaprine Hcl* (Cyclobenzaprine Hcl*) 5 Mg Tablet, 5 MG PO Q8H Y for PAIN , #15 TAB Prov:BONI WADDELL PA-C 07/21/16 Prednisone* (Prednisone*) 20 Mg Tab, 40 MG PO DAILY for 4 Days, TAB Prov:BONI WADDELL PA-C 07/21/16 Ibuprofen* (Motrin*) 600 Mg Tab, 600 MG PO Q6, #30 TAB Prov:BONI WADDELL PA-C 07/21/16 Allergies Allergies: Coded Allergies: No Known Allergy (Unverified , 05/29/17) PMhx/Soc History of Surgery: Yes (c-sec, tone) Anesthesia Reaction: No Hx Neurological Disorder: No Hx Respiratory Disorders: No Hx Cardiac Disorders: No Hx Psychiatric Problems: No Hx Miscellaneous Medical Probl: Yes (carpal tunnel) Hx Alcohol Use: No Hx Substance Use: No Hx Tobacco Use: No Smoking Status: Never smoker Physical Exam Vitals Vital Signs Date Time Temp Pulse Resp B/P Pulse Ox O2 Delivery O2 Flow Rate FiO2 07/21/17 08:17 97.0 84 18 146/91 98 Physical Exam General: Well-developed, morbidly obese, conscious and coherent, in no distress Skin: Warm and dry without rash, good texture and turgor Head: Normocephalic without evidence of trauma Eyes: Sclera and conjunctivae normal; pupils equal, round, and reactive to light; extraocular movements are intact Chest: Normal AP diameter. Good expansion without retractions. Nontender. Lungs are clear to auscultate bilaterally with good tidal volume Heart: Regular rate and rhythm. No murmur, rub, or gallops heard Back: Without spinal or CVA tenderness. Left gluteal tenderness. Extremities: Full range of motion. Good strength bilaterally. No clubbing, cyanosis, or edema. Peripheral pulses are intact. Sensation intact Neuro: Alert and oriented 4, GCS 15. Cranial nerves grossly intact. Motor exams nonfocal. Diminished sensation of her left big toe, neuro exam otherwise normal. Moves all extremities. Speech clear. Gait normal Results 24 hrs Current Medications Medications (Trade) Dose Ordered Sig/Joyce Route PRN Reason Start Time Stop Time Status Last Admin Dose Admin Bupivacaine HCl (Marcaine 0.25% (Mpf) 10 ml) 10 ml ONCE ONCE INJ 07/21/17 09:00 07/21/17 09:01 DC Bupivacaine HCl (Marcaine 0.25% (Mpf) 30 ml) VOLUME PER MD ONCE INJ 07/21/17 09:30 07/21/17 09:31 DC Procedures/MDM Morbidly obese 42-year-old female presented ED with sciatic nerve pain originates from her left gluteal region. Patient does not have any midline spinal tenderness. I doubt spinal fracture, subluxation, or disc herniation. I doubt spinal epidural abscess, cauda equina syndrome. Procedure note: Trigger point injection Trigger point injection performed by me. 10 mL of bupivacaine is injected into left gluteal region. Total number muscle groups injected: 1. Patient reports improvement of pain after the trigger point injection. Patient appears well, stable for discharge and outpatient management. Patient is advised to follow-up with her PCP and request for physical therapy referral. Medical decision making shared with patient and family. Education provided to patient and family. Patient and family expressed understanding of the plan. Medications on discharge: Ibuprofen, Flexeril. Follow-up: Primary care provider in 2-3 days or return to ED if worse. Disclaimer: Inadvertent spelling and grammatical errors are likely due to EHR/ dictation software use and do not reflect on the overall quality of patient care. Also, please note that the electronic time recorded on this note does not necessarily reflect the actual time of the patient encounter. Departure Diagnosis: Primary Impression: Pyriformis syndrome Laterality: left Qualified Code: G57.02 - Piriformis syndrome of left side Additional Impression: Morbid obesity Condition: Stable Patient Instructions: Back Exercises: Hip Rotator Stretch, Back Exercises: Lower Back Stretch, Back Spasm, No Trauma Additional Instructions: Call your primary care doctor TOMORROW for an appointment during the next 2-3 days.See the doctor sooner or return here if your condition worsens before your appointment time. Ask your primary provider for a referral to physical therapy. NYLA DAVID NP Jul 21, 2017 08:48
[2017-07-21] MEDS ORDERED: BUPIVACAINE 0.25% (MPF) 10 ML 10 ML VIAL INJ ONE (09:00)
[2017-07-21] MEDS ORDERED: BUPIVACAINE 0.25% (MPF) 30 ML INJ INJ SCH (09:30)
== END 2017-07-21 10:48 | disposition home or self-care (01) ==
LOC: FTE 08:14
DX: G57.02 Lesion of sciatic nerve, left lower limb (principal); E66.01 Morbid (severe) obesity due to excess calories
CPT/HCPCS: 99283; Z7610

== ENCOUNTER 2017-09-30 09:40 | Emergency (ER) | END 2017-09-30 12:55 | disposition home or self-care (01) ==

== ENCOUNTER 2017-10-17 17:06 | Emergency (ER) | END 2017-10-17 19:29 | disposition home or self-care (01) ==